=== PATIENT | female | born 1985 | race Caucasian/White ===

== ENCOUNTER 2017-04-01 22:13 | Emergency (ER) | payer OTHER ==
[~2017-04-01] VITALS: Ht 170.2 cm; Wt 72.6 kg
[2017-04-01 22:40] LABS: *BILIRUBIN,URIN NEGATIVE (NEGATIVE); *BLOOD, URINE 3+ (NEGATIVE); *CLARITY,URINE CLOUDY (CLEAR); *COLOR,URINE DARK YELLOW (YELLOW); *KETONES,URINE NEGATIVE (NEGATIVE); *PROTEIN,URINE 1+ (NEGATIVE); *UROBILINOGEN,URINE 0.2 E.U./dl (NORMAL); LEUKOCYTE ESTERASE ,URINE 2+ (NEGATIVE); NITRITE, URINE POSITIVE (NEGATIVE); UGLUCOSE TRACE (NEGATIVE)
[2017-04-01 22:46] LABS: *URINE HCG, QUAL NEGATIVE (NEGATIVE)
[2017-04-01 22:53] LABS: BACTERIA,URINE FEW /HPF (NONE SEEN); RBC,URINE 80-100 /HPF (0-3); SQUAMOUS EPITHELIAL CELL,UR FEW /HPF (NONE SEEN)
--- NOTE | 2017-04-01 23:28 | NUR ---
Patient discharged to home in stable conditon. Written and verbal after care instructions given. Patient verbalizes understanding of instructions.
[2017-04-02] MEDS: NITROFURANTOIN/NITROFURAN MAC 100 MG CAPSULE PO ONE (00:11)
[2017-04-02] MEDS: PHENAZOPYRIDINE HCL 100 MG TABLET PO ONE (00:11)
[2017-04-02] MEDS ORDERED: NITROFURANTOIN/NITROFURAN MAC 100 MG CAPSULE ONE (00:18)
[2017-04-02] MEDS ORDERED: PHENAZOPYRIDINE HCL 100 MG TABLET ONE (00:18)
== END 2017-04-01 23:33 | disposition home or self-care (01) ==
LOC: ER 22:15
DX: N30.00 Acute cystitis without hematuria (principal); Z87.440 Personal history of urinary (tract) infections
CPT/HCPCS: 84703; 87086; A4663

== ENCOUNTER 2018-05-11 19:40 | Emergency (ER) | payer OTHER ==
[~2018-05-11] VITALS: Ht 170.2 cm; Wt 81.6 kg
--- NOTE | 2018-05-11 22:32 | NUR ---
Dr. Emile DANG MD at bedside for MSE.
[2018-05-11] MEDS ORDERED: predniSONE 50 MG TABLET PO ONE (22:45)
[2018-05-11] MEDS ORDERED: predniSONE 50 MG TABLET ONE (22:49)
--- NOTE | 2018-05-11 23:06 | NUR ---
Patient discharged to home in stable conditon. Written and verbal after care instructions given. Patient verbalizes understanding of instructions.
[2018-05-11 23:08] VITALS: BP 128/74
== END 2018-05-11 23:08 | disposition home or self-care (01) ==
LOC: ER 19:44
DX: J45.909 Unspecified asthma, uncomplicated (principal)
CPT/HCPCS: 71045; 99283; A4663; J7512

== ENCOUNTER 2018-10-26 14:09 | Emergency (ER) | payer OTHER ==
[~2018-10-26] VITALS: Ht 170.2 cm; Wt 83.9 kg
--- NOTE | 2018-10-26 15:22 | NUR ---
Patient is resting comfortably on gurney, no coughing heard at this time, no shortness of breath seen, still for MD to do the MSE. [facility] explained to patient the reason for delays. Comfort and safety needs were met.
--- NOTE | 2018-10-26 16:01 | NUR ---
Patient discharged to home in stable conditon. Written and verbal after care instructions given. Patient verbalizes understanding of instructions. Stressed follow up.
== END 2018-10-26 16:02 | disposition home or self-care (01) ==
LOC: ER 14:09
DX: J45.909 Unspecified asthma, uncomplicated (principal)
CPT/HCPCS: A4663

== ENCOUNTER 2018-12-20 21:57 | Emergency (ER) | payer OTHER ==
[~2018-12-20] VITALS: Ht 170.2 cm; Wt 81.6 kg
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
[2018-12-21] MEDS ORDERED: IBUPROFEN 800 MG TABLET ONE (00:26)
[2018-12-21] MEDS ORDERED: IBUPROFEN 800 MG TABLET PO ONE (00:30)
[2018-12-21 01:26] LABS: *URINE HCG, QUAL NEGATIVE (NEGATIVE)
--- NOTE | 2018-12-21 01:33 | NUR ---
Pt went down to radiology dept for CT scan.
--- NOTE | 2018-12-21 02:05 | NUR ---
Patient discharged to home in stable conditon. Written and verbal after care instructions given. Patient verbalizes understanding of instructions. Pt ambulated out of ER in stable gait. All belongings w pt. VSS. NAD noted.
[2018-12-21 02:08] VITALS: BP 116/77
== END 2018-12-21 02:09 | disposition home or self-care (01) ==
LOC: ER 21:57
DX: S13.4XXA Sprain of ligaments of cervical spine, initial encounter (principal); S39.012A Strain of muscle, fascia and tendon of lower back, initial encounter; V43.52XA Car driver injured in collision with other type car in traffic accident, initial encounter; Y93.89 Activity, other specified; Y92.89 Other specified places as the place of occurrence of the external cause; Y99.8 Other external cause status
CPT/HCPCS: 72125; 72131; 84703; A4663

== ENCOUNTER 2019-11-25 20:13 | Emergency (ER) | payer OTHER | END 2019-11-25 21:02 | disposition left against medical advice (07) | LOC: ER 20:13 | DX: Z53.21 Procedure and treatment not carried out due to patient leaving prior to being seen by health care provider (principal) ==